=== PATIENT | male | born 1960 | race Caucasian/White ===

== ENCOUNTER 2017-12-04 09:38 | Inpatient (IN) | END 2017-12-07 13:52 | disposition home or self-care (01) | DRG 291 ==

== ENCOUNTER → 2017-12-24 | Outpatient (CLI) | END | disposition home or self-care (01) ==

== ENCOUNTER 2018-04-01 05:49 | Inpatient (IN) | END 2018-04-02 14:30 | disposition home or self-care (01) | DRG 293 ==

== ENCOUNTER 2018-04-28 04:16 | Emergency (ER) | END 2018-04-28 06:39 | disposition home or self-care (01) ==

== ENCOUNTER 2018-04-30 16:15 | Observation (INO) | END 2018-05-01 11:37 | disposition home or self-care (01) ==

== ENCOUNTER 2019-07-28 15:01 | Inpatient (IN) | payer MEDICAID ==
[~2019-07-28] VITALS: Ht 162.6 cm; Wt 77.0 kg
[~2019-07-28 15:01] MED LIST: ASPI-831 PO; ATOR40TA68 PO; BENA10TA6 PO; CARV6.2579 PO; CLOP75TA28 PO; FURO-110 PO; METF-849 PO; POLY17PO6 PO; SIMV20TA PO
[2019-07-28] MEDS ORDERED: SOD CHLORIDE 0.9% 100 ML ONE (15:35)
[2019-07-28] MEDS ORDERED: IOHEXOL 100 ML ONE (15:35)
[2019-07-28] MEDS ORDERED: ASPIRIN 81 MG TAB PO ONE ×2 (16:00→16:30)
[2019-07-28] MEDS ORDERED: CLOPIDOGREL 75 MG TAB PO ONE (16:30)
[2019-07-28] MEDS ORDERED: ONDANSETRON 4 MG INJ IV PRN ×2 (16:30→17:30)
[2019-07-28] MEDS ORDERED: ACETAMINOPHEN 325 MG TAB PO PRN ×2 (16:30→17:30)
[2019-07-28] MEDS ORDERED: HYDROCODONE/APAP (5/325) TAB PO PRN (17:30)
[2019-07-28] MEDS ORDERED: hydrALAzine 20 MG INJ IV PRN (17:30)
[2019-07-28] MEDS ORDERED: NACL 0.9% 3 ML SYG IV SCH (17:30)
[2019-07-28] MEDS ORDERED: GLUCOSE GEL 15 GRAM TUBE PO PRN ×2 (18:00)
[2019-07-28] MEDS: INSULIN ASPART [NOVOLOG] 3 ML PEN SC SCH ×3 (18:00→20:49)
[2019-07-28] MEDS ORDERED: GLUCOSE GEL 15 GRAM TUBE BUCCAL PRN (18:00)
[2019-07-28] MEDS ORDERED: DEXTROSE 50% 50 ML SYRINGE IV PRN ×2 (18:00)
[2019-07-28] MEDS ORDERED: GLUCAGON 1 MG INJ IM PRN (18:00)
[2019-07-28 18:45] VITALS: BP 146/87; PULSE 65; RESP 18
[2019-07-28 19:35] VITALS: Ht 162.6 cm; Wt 77.0 kg
[2019-07-28 20:00] VITALS: BP 136/83; PULSE 65; RESP 20
[2019-07-28] MEDS: FUROSEMIDE 20 MG TAB PO SCH (20:47)
[2019-07-28] MEDS: ATORVASTATIN 40 MG TAB PO SCH (20:47)
[2019-07-29] VITALS (7 sets, daily range): BP systolic 127–149; BP diastolic 81–98; PULSE 56–63; RESP 18–20
[2019-07-29] MEDS: INSULIN GLARGINE [LANTus] (100 UNITS/ML) SYG SC SCH ×2 (00:04→22:00)
[2019-07-29] MEDS ORDERED: MAGNESIUM SULFATE 2 GM/50 ML 50 ML IVPB ONE (07:00)
[2019-07-29] MEDS: ASPIRIN 81 MG TAB PO SCH (08:33)
[2019-07-29] MEDS: CLOPIDOGREL 75 MG TAB PO SCH (08:33)
[2019-07-29] MEDS: FUROSEMIDE 20 MG TAB PO SCH ×2 (08:34→20:16)
[2019-07-29] MEDS: POLYETHYLENE GLYCOL 17 GM PACKET PO SCH (08:34)
[2019-07-29] MEDS: INSULIN ASPART [NOVOLOG] 3 ML PEN SC SCH ×7 (08:46→22:01)
[2019-07-29] MEDS: ENOXAPARIN 40 MG/0.4 ML SYG SC SCH (08:46)
[2019-07-29] MEDS: ATORVASTATIN 40 MG TAB PO SCH (20:15)
[2019-07-30 04:00] VITALS: BP 123/86; PULSE 58; RESP 18
[2019-07-30 07:43] VITALS: BP 149/93; PULSE 69
[2019-07-30] MEDS: INSULIN ASPART [NOVOLOG] 3 ML PEN SC SCH ×4 (07:55→11:45)
[2019-07-30] MEDS: POLYETHYLENE GLYCOL 17 GM PACKET PO SCH (08:33)
[2019-07-30] MEDS: FUROSEMIDE 20 MG TAB PO SCH (08:33)
[2019-07-30] MEDS: CLOPIDOGREL 75 MG TAB PO SCH (08:33)
[2019-07-30] MEDS: ASPIRIN 81 MG TAB PO SCH (08:33)
[2019-07-30] MEDS: ENOXAPARIN 40 MG/0.4 ML SYG SC SCH (08:48)
[2019-07-30 11:15] VITALS: BP 132/80; PULSE 56; RESP 18
== END 2019-07-30 13:06 | disposition home or self-care (01) | DRG 65 ==
LOC: E/R 15:01 → TEL 16:12
PROVIDERS: ADMIT Internal Medicine; ATTEND Internal Medicine
DX: I63.9 Cerebral infarction, unspecified (principal); I42.9 Cardiomyopathy, unspecified; I10 Essential (primary) hypertension; E78.5 Hyperlipidemia, unspecified; E11.9 Type 2 diabetes mellitus without complications; I27.20 Pulmonary hypertension, unspecified; R53.1 Weakness; R47.9 Unspecified speech disturbances
CPT/HCPCS: 36415; 70450; 70496; 70498; 70551; 71045; 80048; 80061; 80307; 81001; 82550; 82553; 82962; 83036; 83735; 83880; 84100; 84484; 85025; 85610; 85651; 85730; 86592; 86703; 92610; 93005; 93306; 97161; 97166; J1650; J1815; J3475; Q9967